=== PATIENT | male | born 1960 | race Caucasian/White ===

== ENCOUNTER 2021-08-26 08:08 | Day surgery (SDC) | payer MEDICAID ==
[2021-08-19 15:54] LABS: BASOPHILS # (AUTO) 0.1 X10'3 (0-0.2); BASOPHILS % (AUTO) 1.2 % (0-1); EOSINOPHILS # (AUTO) 0.4 X10'3 (0-0.9); EOSINOPHILS % (AUTO) 7.6 % (0-6); LYMPHOCYTES # (AUTO) 1.5 X10'3 (1.1-4.8); LYMPHOCYTES % (AUTO) 27.6 % (21-51); MEAN CORPUSCULAR HEMOGLOBIN 30.1 PG (27.0-31.0); MEAN CORPUSCULAR HGB CONC 34.8 g/dL (33.0-36.5); MEAN CORPUSCULAR VOLUME 86.4 FL (78-98); MEAN PLATELET VOLUME 8.2 FL (7.4-10.4); MONOCYTES # (AUTO) 0.4 X10'3 (0-0.9); MONOCYTES % (AUTO) 7.5 % (2-12); NEUTROPHILS % (AUTO) 56.1 % (42-75); PRE OP HEMOGLOBIN 14.9 g/dL (14.0-17.9); PRE OP PLATELET COUNT 218 X10'3 (140-440); RED BLOOD COUNT 4.97 X10'6 (4.70-6.10); RED CELL DISTRIBUTION WIDTH 13.2 % (11.5-14.5)
[2021-08-19 16:10] LABS: ALBUMIN 3.7 G/DL (3.4-5.0); ALKALINE PHOSPHATASE 41 IU/L (46-116); BLOOD UREA NITROGEN 16 MG/DL (7-18); BUN/CREATININE RATIO 16.5 (5.4-32.0); CALCIUM 8.6 MG/DL (8.5-10.1); CHLORIDE 104 MMOL/L (99-107); CREATININE 0.97 MG/DL (0.60-1.10); PRE OP ALT 31 U/L (30-65); PRE OP ANION GAP 10 (8-16); PRE OP AST 27 U/L (10-37); PRE OP BILIRUB, TOTAL 0.6 MG/DL (0.0-1.0); PRE OP GLUCOSE 93 MG/DL (70-104); PRE OP POTASSIUM 4.1 MMOL/L (3.4-5.1); PRE OP SODIUM 142 MMOL/L (135-145); TOTAL CARBON DIOXIDE 28.1 MMOL/L (24-32); TOTAL PROTEIN 7.4 G/DL (6.4-8.2); eGFR 79 ML/MIN
[~2021-08-26] VITALS: Ht 162.6 cm; Wt 65.5 kg
[2021-08-26] VITALS (9 sets, daily range): BP systolic 109–134; BP diastolic 69–86
[~2021-08-26 08:08] MED LIST: ATOR10TA70 PO; LEVO100T9 PO; ceFAZolin 2gm in dextrose, iso 50 ML IV ONE; famotidine 20mg tablet PO ONE; ringers solution, lacted 1,000 ML IV SCH; vancomycin/NS 1 GM ADD-VANTAGE 250 ML X 1 DOSE IV ONE
[2021-08-26] MEDS ORDERED: morphine 2 MG/ML inj. syringe IV PRN (09:25)
[2021-08-26] MEDS ORDERED: ringers solution, lacted 1,000 ML IV SCH (09:25)
[2021-08-26] MEDS ORDERED: meperidine/PF 25mg/ml syringe IV PRN ×3 (09:25)
[2021-08-26] MEDS ORDERED: ondansetron/PF 4mg/2ml inj IV PRN (09:25)
[2021-08-26] MEDS ORDERED: proCHLORperazine 10 MG/2 ml inj IV PRN (09:25)
[2021-08-26] MEDS ORDERED: morphine 4 MG/ML inj SYRINge IV PRN (09:25)
[2021-08-26] MEDS ORDERED: fentaNYL/PF 50MCG/1 ML 2ML syringe ONE ×2 (09:32→10:54)
[2021-08-26] MEDS ORDERED: midazolam 1 mg/ML 2ml injection ONE (09:32)
[2021-08-26] MEDS ORDERED: BUPIVAcaine/PF 2.5 mg/ml (0.25%) 30ml vial ONE (09:34)
[2021-08-26] MEDS ORDERED: glycopyrrolate 0.2mg/ml inj ONE (10:18)
[2021-08-26] MEDS ORDERED: propofol inj 20 ML IV ONE (10:19)
[2021-08-26] MEDS ORDERED: LIDOcaine 2% (20mg/ml) 5ml vial ONE (10:19)
[2021-08-26] MEDS ORDERED: triamcinolone acetonide 40mg/ml inj ONE (11:30)
--- NOTE | 2021-08-26 11:45 | NUR ---
Received from OR via , accompanied by Anesthesiologist and report given by Anesthesiolgist. PATIENT WAKING UP, NO S/S OF PAIN, V/S WNL, NEUROVASCULAR CHECKS INTACT, 20G PIV LUE, DRESSING TO RIGHT KNEE CDI .
--- NOTE | 2021-08-26 12:55 | NUR ---
PATIENT A&OX4, DENIES PAIN, V/S WNL, NEUROVASCULAR CHECKS INTACT, 20G PIV LUE D/C, DRESSING TO RIGHT KNEE CDI . I HAVE REVIEWED D/C INSTRUCTIONS WITH PATIENT AND HE HAS VERBALIZED UNDERSTANDING. PATIENT D/C HOIME WITH ALL BELONGINGS AND TAXI GAVE TRANSPORT
== END 2021-08-26 12:55 | disposition home or self-care (01) ==
LOC: PAS 08:08
PROVIDERS: ATTEND Orthopaedic Surgery
DX: S83.231A Complex tear of medial meniscus, current injury, right knee, initial encounter (principal); S83.271A Complex tear of lateral meniscus, current injury, right knee, initial encounter; M94.261 Chondromalacia, right knee; M17.11 Unilateral primary osteoarthritis, right knee; E78.5 Hyperlipidemia, unspecified; E03.9 Hypothyroidism, unspecified; E66.8 Other obesity; Z68.26 Body mass index [BMI] 26.0-26.9, adult; Z20.822 Contact with and (suspected) exposure to COVID-19; Z79.899 Other long term (current) drug therapy; Z98.890 Other specified postprocedural states; Z72.89 Other problems related to lifestyle; Z87.891 Personal history of nicotine dependence; X58.XXXA Exposure to other specified factors, initial encounter; Y93.89 Activity, other specified; Y92.89 Other specified places as the place of occurrence of the external cause; Y99.8 Other external cause status
CPT/HCPCS: 29873; 29879; 29880; 36415; 80053; 82948; 85025; 93005; J2001; J2250; J2704; J3010; J3301; J3370; J3490; J7120; U0003; U0005; Z7506; Z7508; Z7512; A4215; A4618; A6250; A6449; A7000